=== PATIENT | female | born 1985 | race African-American/Black ===

== ENCOUNTER 2017-06-17 00:35 | Observation (INO) | payer OTHER ==
[~2017-06-17] VITALS: Ht 157.5 cm; Wt 89.8 kg
[2017-06-17 04:06] VITALS: BP_SYST 118
== END 2017-06-17 02:51 | disposition home or self-care (01) ==
LOC: SPU 00:35
PROVIDERS: ADMIT Obstetrics & Gynecology; ATTEND Obstetrics & Gynecology
DX: O62.9 Abnormality of forces of labor, unspecified (principal); Z3A.37 37 weeks gestation of pregnancy
CPT/HCPCS: G0378

== ENCOUNTER 2017-07-05 02:43 | Inpatient (IN) | payer OTHER ==
[~2017-07-05] VITALS: Ht 157.5 cm; Wt 87.5 kg
[2017-07-05] MEDS ORDERED: LR 1,000 ML IV SCH (03:02)
[2017-07-05] MEDS ORDERED: LR 1,000 ML IV ONE (03:02)
[2017-07-05] MEDS ORDERED: NALBUPHINE HCL 10 MG/ML AMP IVP PRN (03:15)
[2017-07-05] MEDS ORDERED: AMPICILLIN SODIUM 2 GM in NS 100 ML IV ONE (03:15)
[2017-07-05 03:54] LABS: BASOPHILS # (AUTO) 0.3 K/uL (0.0-0.2); BASOPHILS % (AUTO) 2.2 % (0.0-2.0); EOSINOPHILS % (AUTO) 0.4 % (0.0-4.0); HEMATOCRIT 31.3 % (36-48); LYMPHOCYTES # (AUTO) 1.5 K/uL (1.0-5.5); LYMPHOCYTES % (AUTO) 12.8 % (20.5-51.5); MEAN CORPUSCULAR HEMOGLOBIN 21 pg (27-31); MEAN CORPUSCULAR HGB CONC 32 % (32-36); MEAN CORPUSCULAR VOLUME 65 fL (79.0-98.0); MONOCYTES % (AUTO) 8.3 % (1.7-9.3); NEUTROPHILS # (AUTO) 8.8 K/uL (1.8-7.7); NEUTROPHILS % (AUTO) 76.3 % (40.0-70.0); PLATELET COUNT (AUTO) 235 K/uL (130-430); RED BLOOD CELL COUNT(AUTO) 4.82 MIL/uL (4.2-6.2); WHITE BLOOD COUNT (AUTO) 11.6 K/uL (4.8-10.8)
[2017-07-05] MEDS ORDERED: AMPICILLIN SODIUM 2 GM VIAL ONE (04:15)
[2017-07-05] MEDS ORDERED: FENT2mCg/mL-ROPIVA0.2%/NS EPID 150 ML EP ONE (04:26)
[2017-07-05] MEDS ORDERED: LR 500 ML IV ONE (05:10)
[2017-07-05] MEDS ORDERED: ePHEDrine sulfate 50 MG/ML VIAL IVP PRN (05:15)
[2017-07-05] MEDS ORDERED: FENT2mCg/mL-ROPIVA0.2%/NS EPID 150 ML EP SCH (05:15)
[2017-07-05] MEDS ORDERED: OXYTOCIN/NORMAL SALINE 1,000 ML IV SCH ×2 (05:21→07:55)
[2017-07-05] MEDS ORDERED: OXYTOCIN/NORMAL SALINE 1,000 ML IV ONE ×2 (05:37→07:55)
[2017-07-05] MEDS ORDERED: AMPICILLIN SODIUM 1 GM in NS 50 ML IV SCH (07:00)
[2017-07-05] MEDS ORDERED: MEASLES,MUMPS&RUBELLA VACC/PF 12500 UNIT/0.5 ML VIAL SUBQ PRN (08:00)
[2017-07-05] MEDS ORDERED: HYDROCORTISONE 0.5%, 28.35 GM TOPICAL CREAM TP PRN (08:00)
[2017-07-05] MEDS ORDERED: LANOLIN 7 GM OINT. TP PRN (08:00)
[2017-07-05] MEDS ORDERED: DERMOPLAST SPRAY TP PRN (08:00)
[2017-07-05] MEDS ORDERED: RHO(D) IMMUNE GLOBULIN/MALTOSE 1500 UNITS/1.3 ML (WINHRO) IM PRN (08:00)
[2017-07-05] MEDS ORDERED: METHYLERGONOVINE MALEATE 0.2 MG TABLET PO PRN (08:00)
[2017-07-05] MEDS ORDERED: SENNOSIDES/DOCUSATE SODIUM 1 TAB TABLET(SENOKOT-S) PO PRN (08:00)
[2017-07-05] MEDS ORDERED: OXYCODONE/ACETAMINOPHEN 5-325 TABLET PO PRN ×2 (08:00)
[2017-07-05] MEDS ORDERED: GLYCERIN/WITCH HAZEL (TUCKS PADS) TP PRN (08:00)
[2017-07-05] MEDS ORDERED: ANUSOL 1 EA SUPP.RECT (PREPARATION H) RC PRN (08:00)
[2017-07-05] MEDS ORDERED: DOCUSATE SODIUM 100 MG CAPSULE PO PRN (08:00)
[2017-07-05 09:10] VITALS: BP_SYST 119
[2017-07-05] MEDS: IBUPROFEN 600 MG TABLET PO SCH ×2 (12:22→19:34)
[2017-07-05] MEDS ORDERED: TEMAZEPAM 15 MG CAPSULE PO PRN (21:00)
[2017-07-06] MEDS: IBUPROFEN 600 MG TABLET PO SCH ×3 (00:22→12:06)
[2017-07-06 07:25] LABS: BASOPHILS % (AUTO) 0.1 % (0.0-2.0); EOSINOPHILS % (AUTO) 0.3 % (0.0-4.0); HEMATOCRIT 23.1 % (36-48); HEMOGLOBIN 7.3 g/dL (12.0-16.0); LYMPHOCYTES # (AUTO) 1.3 K/uL (1.0-5.5); MEAN CORPUSCULAR HEMOGLOBIN 21 pg (27-31); MEAN CORPUSCULAR HGB CONC 31 % (32-36); MEAN CORPUSCULAR VOLUME 66 fL (79.0-98.0); MONOCYTES # (AUTO) 0.9 K/uL (0.0-1.0); MONOCYTES % (AUTO) 5.7 % (1.7-9.3); NEUTROPHILS # (AUTO) 12.8 K/uL (1.8-7.7); NEUTROPHILS % (AUTO) 84.9 % (40.0-70.0); PLATELET COUNT (AUTO) 186 K/uL (130-430); RED BLOOD CELL COUNT(AUTO) 3.52 MIL/uL (4.2-6.2); RED CELL DISTRIBUTION WIDTH 18.7 % (9.0-15.0)
== END 2017-07-06 13:40 | disposition home or self-care (01) | DRG 775 ==
LOC: SPU 02:43 → OBSVTOIN 02:43 → SPU 17:11
PROVIDERS: ADMIT Obstetrics & Gynecology; ATTEND Obstetrics & Gynecology
PROC: 10E0XZZ Delivery of Products of Conception, External Approach (ICD-10-PCS; principal; 2017-07-05)
PROC: 3E0R3CZ (ICD-10-PCS; 2017-07-05)
PROC: 00HU33Z Insertion of Infusion Device into Spinal Canal, Percutaneous Approach (ICD-10-PCS; 2017-07-05)
PROC: 3E0134Z Introduction of Serum, Toxoid and Vaccine into Subcutaneous Tissue, Percutaneous Approach (ICD-10-PCS; 2017-07-05)
DX: O99.824 Streptococcus B carrier state complicating childbirth (principal); O71.82 Other specified trauma to perineum and vulva; Z3A.40 40 weeks gestation of pregnancy; Z37.0 Single live birth; Z23 Encounter for immunization
CPT/HCPCS: 36415; 81002-TC; 85025; 86592; 86886; 86900; 86901; J0290; J2300; J2590; J3010